=== PATIENT | male | born 1975 | race Caucasian/White ===

== ENCOUNTER → 2017-10-08 | Outpatient (CLI) | payer SELFPAY | LOC: COL.VAS 13:06 | DX: R94.31 Abnormal electrocardiogram [ECG] [EKG] (principal) ==

== ENCOUNTER → 2017-12-03 | Outpatient (CLI) | payer OTHER ==
[~2017-12-03] VITALS: Ht 185.4 cm; Wt 149.7 kg
[~2017-12-03] MED LIST: MEVACOR 20M20 MG/TAB PO; TENORMIN 5050 MG/TAB PO
[2017-12-03 10:53] VITALS: BP 151/96; PULSE 89
[2017-12-03 12:18] VITALS: BP 138/84; PULSE 100
[2017-12-03 12:19] VITALS: BP 142/83; PULSE 96
[2017-12-03 12:20] VITALS: BP 143/83; PULSE 93
== END ==
LOC: COL.CARD 10:26
DX: I10 Essential (primary) hypertension (principal); I20.9 Angina pectoris, unspecified; R94.31 Abnormal electrocardiogram [ECG] [EKG]; R06.02 Shortness of breath
CPT/HCPCS: A9502; J2785

== ENCOUNTER → 2017-12-17 | Outpatient (CLI) | payer OTHER | LOC: COL.PUL 12-09 11:20 | DX: R06.02 Shortness of breath (principal) ==

== ENCOUNTER 2019-05-30 06:31 | Emergency (ER) | payer SELFPAY ==
[~2019-05-30] VITALS: Ht 185.4 cm; Wt 147.7 kg
[2019-05-30 06:51] VITALS: TEMP 98.9
[2019-05-30 07:41] LABS: BASO # 0.1 (0.0-0.2); BASO % 0.6 % (0.0-2.0); EOS # 0.3 (0.0-0.7); EOS % 3.2 % (0-4.0); GRAN # 3.9 (1.4-6.5); HEMATOCRIT 51.3 % (42.0-52.0); HEMOGLOBIN 17.3 g/dl (13.5-18.0); LYMPH # 2.8 (1.2-3.4); LYMPH % 35.8 % (20.0-51.0); MEAN CELL VOLUME 89 fl (80.0-100.0); MEAN CORPUSCULAR HEMOGLOBIN 30 pg (27.0-31.0); MEAN CORPUSCULAR HGB CONC 34 g/dl (33.0-37.0); MEAN PLATELET VOLUME 9.3 fl (7.4-10.4); MONO # 0.8 (0.1-0.6); MONO % 10.1 % (1.7-9.3); PLATELET COUNT 235 K/mm3 (130-400); RED BLOOD COUNT 5.79 M/mm3 (4.20-5.60); REDCELL DISTRIBUTION WIDTH-CV 14.5 % (11.5-14.5)
[2019-05-30 07:49] LABS: ALBUMIN 4.1 gm/dL (3.5-5.0); BILIRUBIN,TOTAL 0.3 mg/dL (0.0-1.0); CALCIUM 10.4 mg/dL (8.4-10.2); CREATININE, serum 0.76 (0.66-1.25); POTASSIUM 4.7 mmol/L (3.4-5.0); TOTAL PROTEIN 7.7 gm/dL (6.4-8.2)
[2019-05-30 08:18] VITALS: BP 145/89; PULSE 89
== END 2019-05-30 08:20 | disposition home or self-care (01) ==
LOC: COL.ER 06:31
PROVIDERS: Emergency Medicine
DX: K43.9 Ventral hernia without obstruction or gangrene (principal); I10 Essential (primary) hypertension; E78.5 Hyperlipidemia, unspecified; F17.210 Nicotine dependence, cigarettes, uncomplicated; Z90.49 Acquired absence of other specified parts of digestive tract
CPT/HCPCS: J1885; J2405; J7030; Q9967